=== PATIENT | female | born 1970 | race American Indian/Alaskan Native ===

== ENCOUNTER 2017-08-29 12:19 | Emergency (ER) | payer SELFPAY ==
[2017-08-29] MEDS ORDERED: TYLENOL ONE (14:22)
[2017-08-29] MEDS ORDERED: TYLENOL PO ONE (14:23)
--- NOTE | 2017-08-29 19:25 | Emergency Department Report ---
- General Chief Complaint: Upper Respiratory Infection Stated Complaint: BODY ACHES, COUGH, FATIGUE Time Seen by Provider: 08/29/17 19:25 Source: patient Mode of arrival: Ambulatory Limitations: No Limitations - History of Present Illness Initial Comments: This is a 46-year-old female nontoxic, well nourished in appearance, no acute signs of distress presents to the ED with c/o of body aches, cough, nasal congestion, rhinorrhea, fever, and chills x3 days. Patient denies any sick contacts. Patient denies any nausea, vomiting, chest pain, shortness of breathe , headache, stiff neck, abdominal pain, back pain, no numbness or tingling. Patient denies any recent travels, long car ride, recent hospital stays. Denies hemoptysis. Denies any calf pain or calf tenderness. Patient states allergies to bronchitis, gastric bypass, and pseudotumor. She denies any drug allergies. MD Complaint: fever, cough, rhinorrhea, nasal congestion, other (body aches) -: days(s) (3) Severity: mild Severity scale (0 -10): 8 Quality: aching Consistency: constant Improves With: nothing Worsens With: nothing Associated Symptoms: fever, chills, rhinorrhea, nasal congestion, cough. denies : myalgias, diaphoresis, headache, sore throat, stiff neck, chest pain, shortness of breath, abdominal pain, nausea, vomiting, diarrhea, dysuria, rash, confusion, right sweats, weight loss, epistaxis, hoarseness, ear pain Treatments Prior to Arrival: none - Related Data Previous Rx's Medication Instructions Recorded Last Taken Type ALBUTEROL Inhaler [ProAir HFA 2 puff IH QID PRN #1 inhalation 08/29/17 Unknown Rx Inhaler] Benzonatate [Tessalon Perle] 100 mg PO Q6H PRN #20 capsule 08/29/17 Unknown Rx Ibuprofen [Motrin] 600 mg PO Q6H PRN #30 tablet 08/29/17 Unknown Rx Oseltamivir [Tamiflu] 75 mg PO BID #14 cap 08/29/17 Unknown Rx predniSONE [Deltasone] 40 mg PO QDAY #5 tab 08/29/17 Unknown Rx Allergies Allergy/AdvReac Type Severity Reaction Status Date / Time No Known Allergies Allergy Verified 01/18/18 14:16 ED Review of Systems ROS: Stated complaint: BODY ACHES, COUGH, FATIGUE Other details as noted in HPI Constitutional: chills, fever Eyes: denies: eye pain, eye discharge, vision change ENT: denies: ear pain, throat pain Respiratory: cough. denies: shortness of breath, wheezing Cardiovascular: denies: chest pain, palpitations Endocrine: no symptoms reported Gastrointestinal: denies: abdominal pain, nausea, diarrhea Genitourinary: denies: urgency, dysuria, discharge Musculoskeletal: denies: back pain, joint swelling, arthralgia Skin: denies: rash, lesions Neurological: denies: headache, weakness, paresthesias Psychiatric: denies: anxiety, depression Hematological/Lymphatic: denies: easy bleeding, easy bruising ED Past Medical Hx - Past Medical History Previous Medical History?: Yes Additional medical history: anemia. 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 - Medications Home Medications: Home Medications Medication Instructions Recorded Confirmed Last Taken Type ALBUTEROL Inhaler [ProAir HFA 2 puff IH QID PRN #1 inhalation 08/29/17 Unknown Rx Inhaler] Benzonatate [Tessalon Perle] 100 mg PO Q6H PRN #20 capsule 08/29/17 Unknown Rx Ibuprofen [Motrin] 600 mg PO Q6H PRN #30 tablet 08/29/17 Unknown Rx Oseltamivir [Tamiflu] 75 mg PO BID #14 cap 08/29/17 Unknown Rx predniSONE [Deltasone] 40 mg PO QDAY #5 tab 08/29/17 Unknown Rx ED Physical Exam - General Limitations: No Limitations General appearance: alert, in no apparent distress - Head Head exam: Present: atraumatic, normocephalic, normal inspection - Eye Eye exam: Present: normal appearance, PERRL, EOMI. Absent: scleral icterus, conjunctival injection, nystagmus, periorbital swelling, periorbital tenderness Pupils: Present: normal accommodation - ENT ENT exam: Present: normal exam, normal orophraynx, mucous membranes moist, TM's normal bilaterally, normal external ear exam - Neck Neck exam: Present: normal inspection, full ROM. Absent: tenderness, meningismus, lymphadenopathy, thyromegaly - Respiratory Respiratory exam: Present: normal lung sounds bilaterally. Absent: respiratory distress, wheezes, rales, rhonchi, stridor, chest wall tenderness, accessory muscle use, decreased breath sounds, prolonged expiratory - Cardiovascular Cardiovascular Exam: Present: regular rate, normal rhythm, normal heart sounds. Absent: irregular rhythm, systolic murmur, diastolic murmur, rubs, gallop - GI/Abdominal GI/Abdominal exam: Present: soft, normal bowel sounds. Absent: distended, tenderness, guarding, rebound, rigid, diminished bowel sounds - Rectal Rectal exam: Present: deferred - Extremities Exam Extremities exam: Present: normal inspection, full ROM, normal capillary refill. Absent: tenderness, pedal edema, joint swelling, calf tenderness - Back Exam Back exam: Present: normal inspection, full ROM. Absent: tenderness, CVA tenderness (R), CVA tenderness (L), muscle spasm, paraspinal tenderness, vertebral tenderness, rash noted - Neurological Exam Neurological exam: Present: alert, oriented X3, CN II-XII intact, normal gait, reflexes normal - Psychiatric Psychiatric exam: Present: normal affect, normal mood - Skin Skin exam: Present: warm, dry, intact, normal color. Absent: rash ED Course Vital Signs 08/29/17 08/29/17 14:16 20:53 Temperature 100.9 F H 98.9 F Pulse Rate 91 H 89 Respiratory 20 18 Rate Blood Pressure 159/99 Blood Pressure 147/89 [Right] O2 Sat by Pulse 100 100 Oximetry - Reevaluation(s) Reevaluation #1: 08/29/17 19:45 Patient is speaking in full sentences with no signs of distress noted. ED Medical Decision Making - Medical Decision Making This is a 46-year-old female that presents with influenza A and bronchitis. Patient is stable and was examined by me. Influenza swab positive for A. chest x-ray has been obtained and dictated a radiologist with no infiltrates but does have bronchitis. Patient is notified of x-ray results with noted by the patient. Patient received acetaminophen and Motrin in the ED. Vital signs stable before discharge. Patient was rehydrated and patient tolerated well. Patient was was instructed to rest and increase hydration. Patient was instructed to take Motrin as prescribed for fever episode. Patient received prednisone and albuterol inhaler as needed at discharge. Patient was instructed Follow-up with a primary care doctor in 3-5 days or if symptoms worsen and continue return to emergency room as soon as possible. At time time of discharge, the patient does not seem toxic or ill in appearance. No acute signs of distress noted. Patient agrees to discharge treatment plan of care. No further questions noted by the patient. Critical care attestation.: If time is entered above; I have spent that time in minutes in the direct care of this critically ill patient, excluding procedure time. ED Disposition Clinical Impression: Influenza A, Bronchitis Disposition: DC-01 TO HOME OR SELFCARE Is pt being admited?: No Does the pt Need Aspirin: No Condition: Stable Instructions: Ibuprofen (By mouth), Oseltamivir (By mouth), Fever in Adults (ED ), Influenza (ED), Chronic Bronchitis (ED) Additional Instructions: Follow-up with a primary care doctor in 3-5 days or if symptoms worsen and continue return to emergency room as soon as possible. Increase rest and hydration as much as possible. Take Motrin as prescribed and fever episode. Prescriptions: ALBUTEROL Inhaler [ProAir HFA Inhaler] 2 puff IH QID PRN #1 inhalation PRN Reason: Shortness Of Breath Benzonatate [Tessalon Perle] 100 mg PO Q6H PRN #20 capsule PRN Reason: Cough Ibuprofen [Motrin] 600 mg PO Q6H PRN #30 tablet PRN Reason: Fever Oseltamivir [Tamiflu] 75 mg PO BID #14 cap predniSONE [Deltasone] 40 mg PO QDAY #5 tab Referrals: PRIMARY CARE, [Primary Care Provider] - 3-5 Days DANIKA BALDWIN MD [Staff Physician] - 3-5 Days [facility] [Outside] - 3-5 Days [facility] [Outside] - 3-5 Days Forms: Work/School Release Form(ED)
[2017-08-29] MEDS ORDERED: MOTRIN PO ONE (19:33)
[2017-08-29] MEDS ORDERED: TESSALON PERLES PO ONE (19:35)
[2017-08-29 20:53] VITALS: BP 147/89
--- NOTE | 2017-08-29 21:15 | XRay Report ---
FINAL REPORT EXAM: XR CHEST ROUTINE 2V HISTORY: cough TECHNIQUE: Two views of the chest Comparison: None FINDINGS: Normal heart size. Lungs are clear and well expanded without focal infiltrate or consolidation. Mild peribronchial thickening may suggest bronchitis. Mildly prominent pulmonary arteries. There are extensive clips in the left upper quadrant. There are multilevel marginal osteophytes with mild wedging of the mid thoracic vertebral bodies. The imaged axial skeleton is otherwise unremarkable. IMPRESSION: No infiltrate. Mild peribronchial thickening may suggest bronchitis. Mildly prominent pulmonary arteries. Extensive clips in the left upper quadrant.
== END 2017-08-29 21:45 | disposition home or self-care (01) ==
LOC: ED 12:19
DX: J09.X2 Influenza due to identified novel influenza A virus with other respiratory manifestations (principal); J40 Bronchitis, not specified as acute or chronic
CPT/HCPCS: 71046; 87400; 99283

== ENCOUNTER 2017-11-04 20:37 | Emergency (ER) | payer OTHER ==
--- NOTE | 2017-11-04 22:20 | Cat Scan Report ---
FINAL REPORT PROCEDURE: CT HEAD/BRAIN WO CON TECHNIQUE: Computerized tomography of the head was performed without contrast material. HISTORY: atypical REYES w/ h/o REYES/migraines COMPARISON: No prior studies are available for comparison. FINDINGS: No CT evidence of intracranial mass, hemorrhage, acute territorial infarction, or hydrocephalus. The intracranial arteries are symmetric in density. Calvarium is intact. Visualized paranasal sinuses and mastoids are aerated. IMPRESSION: No CT evidence of acute abnormality
[2017-11-05 01:36] VITALS: BP 149/95
[2017-11-05] MEDS ORDERED: REGLAN IM ONE (01:40)
[2017-11-05] MEDS ORDERED: TORADOL IM ONE (01:40)
--- NOTE | 2017-11-05 01:45 | Emergency Department Report ---
ED Headache HPI - General Chief Complaint: Headache Stated Complaint: HEADACHE Time Seen by Provider: 11/05/17 01:33 Source: patient Exam Limitations: no limitations - History of Present Illness Initial Comments: Patient is 46 years old female with history of headache migraine, remote history of pseudotumor cerebri with frequent spinal tap for that. Patient stated that last time she had spinal tap in 1995. Patient describes her pain as left temporal throbbing associated with nausea but no vomiting. Patient denied any fever or neck pain or neck stiffness. Patient denied any weakness numbness or tingling sensation. No bowel or bladder incontinence. Timing/Duration: waxing and waning Quality: moderate Head Injury Location: temporal Recent Head Trauma: no recent headache/trauma, occasional headaches Modifying Factors: worse with: cold therapy, exposure to light, immobilization, medication, movement, rest, other Associated Symptoms: denies: denies symptoms, confusion, fatigue, facial pain, fever/chills, flushing, loss of consciousness, nausea/vomiting, nasal congestion , nasal drainage, numbness in legs/feet, rash, seizures, sinus infection, stiff neck, vision changes, weakness, other Allergies/Adverse Reactions: Allergies No Known Allergies Allergy (Verified 08/29/17 14:16) Home Medications: Ambulatory Orders ALBUTEROL Inhaler [ProAir HFA Inhaler] 2 puff IH QID PRN #1 inhalation 08/29/17 Benzonatate [Tessalon Perle] 100 mg PO Q6H PRN #20 capsule 08/29/17 Ibuprofen [Motrin] 600 mg PO Q6H PRN #30 tablet 08/29/17 Oseltamivir [Tamiflu] 75 mg PO BID #14 cap 08/29/17 predniSONE [Deltasone] 40 mg PO QDAY #5 tab 08/29/17 ED Review of Systems ROS: Stated complaint: HEADACHE Other details as noted in HPI Comment: All other systems reviewed and negative Constitutional: denies: chills, fever Respiratory: denies: cough, orthopnea, shortness of breath, SOB with exertion Cardiovascular: denies: chest pain, palpitations Gastrointestinal: denies: abdominal pain, nausea, vomiting, diarrhea, constipation, hematemesis, hematochezia Musculoskeletal: denies: back pain Neurological: headache. denies: weakness, numbness, paresthesias ED Past Medical Hx - Past Medical History Previous Medical History?: No Additional medical history: anemia. 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 "I've been dx' d with having excess spinal fluid; I used to get frequent epidurals, last epidural 1995" - Social History Smoking Status: Never Smoker Substance Use Type: None - Medications Home Medications: Home Medications Medication Instructions Recorded Confirmed Last Taken Type ALBUTEROL Inhaler [ProAir HFA 2 puff IH QID PRN #1 inhalation 08/29/17 Unknown Rx Inhaler] Benzonatate [Tessalon Perle] 100 mg PO Q6H PRN #20 capsule 08/29/17 Unknown Rx Ibuprofen [Motrin] 600 mg PO Q6H PRN #30 tablet 08/29/17 Unknown Rx Oseltamivir [Tamiflu] 75 mg PO BID #14 cap 08/29/17 Unknown Rx predniSONE [Deltasone] 40 mg PO QDAY #5 tab 08/29/17 Unknown Rx ED Physical Exam - General Limitations: No Limitations General appearance: alert, in no apparent distress - Head Head exam: Present: atraumatic, normocephalic, normal inspection - Eye Eye exam: Present: normal appearance, PERRL - ENT ENT exam: Present: normal exam, normal orophraynx, mucous membranes moist - Neck Neck exam: Present: normal inspection, full ROM. Absent: tenderness, meningismus, lymphadenopathy, thyromegaly - Respiratory Respiratory exam: Present: normal lung sounds bilaterally. Absent: respiratory distress, wheezes, rales, rhonchi, stridor, chest wall tenderness, accessory muscle use, decreased breath sounds, prolonged expiratory - Cardiovascular Cardiovascular Exam: Present: regular rate, normal rhythm, normal heart sounds - GI/Abdominal GI/Abdominal exam: Present: soft, normal bowel sounds. Absent: distended, tenderness, guarding, rebound, rigid, diminished bowel sounds, mass, bruit, pulsatile mass, hernia - Extremities Exam Extremities exam: Present: normal inspection, full ROM, normal capillary refill - Back Exam Back exam: Present: normal inspection, full ROM. Absent: tenderness, CVA tenderness (R), CVA tenderness (L), muscle spasm, paraspinal tenderness, vertebral tenderness, rash noted - Neurological Exam Neurological exam: Present: alert, oriented X3, CN II-XII intact, normal gait - Skin Skin exam: Present: warm, intact, normal color. Absent: cyanosis, diaphoretic, erythema, urticaria ED Course Vital Signs 11/04/17 11/04/17 11/05/17 20:37 20:57 01:34 Temperature 98.2 F 98.1 F 97.8 F Pulse Rate 79 79 66 Respiratory 16 16 18 Rate Blood Pressure 152/101 152/101 Blood Pressure 149/95 [Left] O2 Sat by Pulse 100 100 100 Oximetry - Reevaluation(s) Reevaluation #1: 11/05/17 04:03 Patient stated that she feels much better, her headache is completely resolved. I advised patient to follow up with her primary care physician for further management. ED Medical Decision Making - Lab Data Result diagrams: 11/05/17 02:07 11/05/17 02:07 Critical care attestation.: If time is entered above; I have spent that time in minutes in the direct care of this critically ill patient, excluding procedure time. ED Disposition Clinical Impression: Headache, Migraine Disposition: DC-01 TO HOME OR SELFCARE Is pt being admited?: No Condition: Stable Instructions: Acute Headache (ED) Referrals: STEPHON BECK MD [Primary Care Provider] - 3-5 Days
[2017-11-05 02:19] LABS: Basophils # (Auto) 0.1 K/mm3 (0.0-0.1); Eosinophils # (Auto) 0.2 K/mm3 (0.0-0.4); Eosinophils % (Auto) 2.9 % (0.0-4.3); Hematocrit 35.8 % (30.3-42.9); Hemoglobin 11.7 gm/dl (10.1-14.3); Lymphocytes # (Auto) 2.9 K/mm3 (1.2-5.4); Lymphocytes % (Auto) 50.6 % (13.4-35.0); Mean Corpuscular HGB Conc 33 % (30-34); Mean Corpuscular Hemoglobin 27 pg (28-32); Mean Corpuscular Volume 82 fl (79-97); Monocytes # (Auto) 0.3 K/mm3 (0.0-0.8); Monocytes % (Auto) 5.8 % (0.0-7.3); Platelet Count 269 K/mm3 (140-440); Red Blood Count 4.36 M/mm3 (3.65-5.03); Red Cell Distribution Width 17.1 % (13.2-15.2)
[2017-11-05 02:40] LABS: Alanine Aminotransferase 7 units/L (7-56); Albumin 3.5 g/dL (3.9-5); BUN/Creatinine Ratio 16; Blood Urea Nitrogen 11 mg/dL (7-17); Calcium 8.1 mg/dL (8.4-10.2); Hemolysis Index 1
== END 2017-11-05 04:15 | disposition home or self-care (01) ==
LOC: ED 20:37
DX: G43.909 Migraine, unspecified, not intractable, without status migrainosus (principal)
CPT/HCPCS: 36415; 70450; 80053; 85025; 86140; 96372; 99284; J1885; J2765